=== PATIENT | male | born 1990 | race Two or more races ===

== ENCOUNTER 2019-01-17 03:58 | Emergency (ER) | payer BC ==
[~2019-01-17] VITALS: Ht 172.7 cm; Wt 77.6 kg
[2019-01-17] MEDS ORDERED: ACET-1467 PO (04:08)
[2019-01-17] MEDS ORDERED: CITA20TA19 PO (04:08)
[2019-01-17] MEDS ORDERED: AMOX500T2 PO (04:08)
--- NOTE | 2019-01-17 04:16 | NUR ---
Patient ambulated with stable gait. Speech is clear, speaks in complete sentences. A/Ox4. No neuro deficits. Patient came in for c/o a "pancreatic" attack, similar to what he has experienced prior. Respiratory even and unlabored, no cough no sob. No cardiovascular distress noted. N/V reported by patient. Patient in bed at lowest position, sr upx2, call light within reach. Fall precautions implemented per protocol. Mother at bedside.
--- NOTE | 2019-01-17 04:28 | NUR ---
ERMD at bedside for MSE
[2019-01-17] MEDS ORDERED: HYDROMORPHONE 1 MG/1 ML DISP.SYRIN ONE ×2 (04:38→05:46)
[2019-01-17] MEDS ORDERED: ONDANSETRON 4 MG/2 ML VIAL ONE ×2 (04:38→05:46)
--- NOTE | 2019-01-17 04:42 | NUR ---
Spoke to Henry Jaramillo and requested for him to reach out to [facility] for patient gallbladder scan.
[2019-01-17] MEDS ORDERED: ONDANSETRON 4 MG/2 ML VIAL IV ONE ×2 (04:45→05:45)
[2019-01-17] MEDS ORDERED: IV NORMAL SALINE 1000 ML BAG IV ONE ×2 (04:45→05:45)
[2019-01-17] MEDS ORDERED: HYDROMORPHONE 1 MG/1 ML DISP.SYRIN IV ONE ×2 (04:45→05:45)
[2019-01-17 04:49] LABS: BASOPHILS # (AUTO) 0.1 K/uL (0.0-8.0); BASOPHILS % (AUTO) 0.8 % (0.0-2.0); EOSINOPHILS # (AUTO) 0.6 K/uL (0.0-0.7); EOSINOPHILS % (AUTO) 6.3 % (0.0-7.0); HEMATOCRIT 46.4 % (36.7-47.1); HEMOGLOBIN 16.5 g/dL (12.5-16.3); LYMPHOCYTES # (AUTO) 3.8 K/uL (20.0-40.0); LYMPHOCYTES % (AUTO) 39.7 % (20.5-51.5); MEAN CORPUSCULAR HEMOGLOBIN 31.2 uug (23.8-33.4); MEAN CORPUSCULAR HGB CONC 36 g/dL (32.5-36.3); MEAN CORPUSCULAR VOLUME 87.5 fL (73.0-96.2); MONOCYTES # (AUTO) 0.7 K/uL (2.0-10.0); MONOCYTES % (AUTO) 6.9 % (0.0-11.0); NEUTROPHILS # (AUTO) 4.4 K/uL (1.8-8.9); NEUTROPHILS % (AUTO) 46.3 % (38.5-71.5); PLATELET COUNT (AUTO) 267 K/uL (152-348); WHITE BLOOD COUNT (AUTO) 9.5 K/uL (3.6-10.2)
[2019-01-17 04:57] LABS: BILIRUBIN,DIRECT 0.2 mg/dL (0.0-0.2); BILIRUBIN,TOTAL 0.8 mg/dL (0.2-1.0); CREATININE 1.1 mg/dL (0.6-1.3); POTASSIUM 3.5 mmol/L (3.5-5.1); TOTAL PROTEIN, SERUM 7.7 g/dL (6.4-8.2)
--- NOTE | 2019-01-17 05:30 | NUR ---
US tech at bedside
--- NOTE | 2019-01-17 06:46 | NUR ---
DANIELLE contacted for US scan update.
[2019-01-17 06:58] VITALS: BP 115/89
--- NOTE | 2019-01-17 06:58 | NUR ---
Patient discharged to home in stable conditon. Written and verbal after care instructions given. Patient verbalizes understanding of instructions. Patient ambulated with stable gait.
== END 2019-01-17 06:59 | disposition home or self-care (01) ==
LOC: ER 04:02
DX: R10.13 Epigastric pain (principal); R11.2 Nausea with vomiting, unspecified; Z79.2 Long term (current) use of antibiotics; Z79.899 Other long term (current) drug therapy
CPT/HCPCS: 36415; 76705; 80048; 80076; 83690; 85025; 85730; 96361; 96374; 96375; 96376; 99284; J1170 ×2; J2405 ×2; A4663; J7030